=== PATIENT | female | born 1980 | race Caucasian/White ===

== ENCOUNTER 2020-03-10 12:58 | Emergency (ER) | payer BC, OTHER ==
[2020-03-10] MEDS ORDERED: Sodium Chloride 0.9% 2.5 ML Syringe FLUSH PRN (13:25)
[2020-03-10] MEDS ORDERED: Sodium Chloride 0.9% 10 ML Syringe FLUSH PRN (13:25)
[2020-03-10 14:14] LABS: BLOOD UREA NITROGEN,BUN 6 mg/dL (7.0-18.0); CARBON DIOXIDE,CO2 24.4 mmol/L (21.0-32.0); CHLORIDE,CL 101 mmol/L (98-107); GLUCOSE RANDOM 86 mg/dL (74-106); POTASSIUM,K 3.4 mmol/L (3.5-5.1); SODIUM,NA 137 mmol/L (136-145)
[2020-03-10] MEDS ORDERED: Ondansetron 4 MG/2 ML SDV IVPUSH ONE ×2 (14:17→18:27)
[2020-03-10] MEDS ORDERED: Lactated Ringers 1,000 ML IV ONE ×2 (14:17→14:19)
--- NOTE | 2020-03-10 16:01 | CR ---
Indication: Pleuritic bilateral chest pain. . Technique: PA and lateral views the chest. Comparison: None Findings: The heart is normal in size. Patchy ground-glass opacities are identified bilaterally. COVID cannot be completely excluded. No pleural effusion or pneumothorax is identified. Impression: Patchy bilateral opacities, COVID cannot be completely excluded Dictated by Lila Cotton MD @ Mar 10 2020 4:00PM Signed by Dr. Lila Cotton @ Mar 10 2020 4:00PM
--- NOTE | 2020-03-10 16:58 | US ---
INDICATION: Pleuritic chest pain TECHNIQUE: A compression venous ultrasound exam was performed of both lower extremities using dietrich scale imaging, color Doppler and spectral Doppler analysis. FINDINGS: Sonographic imaging of the lower extremities demonstrates normal compressibility and color Doppler venous blood flow within the common femoral, deep femoral, and proximal greater saphenous veins. Within the thighs the femoral veins are patent and compressible. At a lower level the popliteal and posterior tibial veins also show normal compressibility and color Doppler venous blood flow. IMPRESSION: No evidence of deep vein thrombosis within either the left or right lower extremity. Dictated by Muriel Kwan MD @ Mar 10 2020 4:54PM Signed by Dr. Muriel Kwan @ Mar 10 2020 4:55PM
[2020-03-10] MEDS ORDERED: Iopamidol 755 MG/ML 500 ML Multipack Bottle IVPUSH ONE (17:28)
--- NOTE | 2020-03-10 17:49 | CT ---
Indication: Pleuritic chest pain COVID positive 22 weeks Technique: Contrast-enhanced CT PE Comparison: No comparison studies are available. Findings: Normal caliber thoracic aorta. Suboptimal enhancement of the pulmonary arteries. No pulmonary emboli visualized. Heart is normal size there is no pericardial effusion. Diffuse bilateral central and peripheral patchy ground-glass and parenchymal opacities. No significant effusion or pneumothorax. Fatty liver. No suspicious bony lesions. Impression: 1. No pulmonary emboli. 2. Diffuse central and peripheral patchy ground-glass and parenchymal opacities consistent with known COVID infection. 3. Fatty liver. Please note that all CT scans at this facility use dose modulation, iterative reconstruction, and/or weight-based dosing when appropriate to reduce radiation dose to as low as reasonably achievable. Dictated by Muriel Kwan MD @ Mar 10 2020 5:43PM Signed by Dr. Muriel Kwan @ Mar 10 2020 5:47PM
--- NOTE | 2020-03-10 17:50 | EDM.PDOC ---
ED HPI GENERAL MEDICAL PROBLEM - General Chief Complaint: Gastrointestinal Problem Stated Complaint: DEHYDRATION/VOMITING Time Seen by Provider: 03/10/20 13:01 Source of Information: Reports: Patient, Old Records History Limitations: Reports: No Limitations - History of Present Illness INITIAL COMMENTS - FREE TEXT/NARRATIVE: This is a very pleasant 39-year-old female with no pertinent past medical history, approximately 22 weeks presenting with nausea, vomiting, cough, and pleuritic chest pain. She reports that she has been dealing with a nonproductive cough for about 5 days duration. She was seen in outpatient clinic and had a [facility] COVID test sent off several days ago that has not resulted yet. She also complains of a few days of pleuritic chest pain which is bilateral in nature. She is not having any substernal chest pain or any chest pain at rest. She complains of multiple episodes of nonbloody emesis over the past week or so. She denies any abdominal pain, hematemesis, diarrhea, bloody stools, vaginal bleeding, back pain, leakage of fluids, lower extremity pain or swelling, history of venous thromboembolism, recent surgery or immobilization or long travel, history of active cancer. She is under the regular care of an inspection manager and is already had an ultrasound performed which reportedly showed the fetus in good position. There are no known issues with this to the patient's knowledge. She has no other complaints. ROS: A 10-point review of systems was negative, except as noted in the HPI (or in the ROS section of this note). Past medical history: Reviewed, no additional pertinent history. Surgical history: Reviewed in system, no additional pertinent history. Social history: Reviewed in system, no additional pertinent history. Family history: Reviewed in system, no additional pertinent history. PHYSICAL EXAM Vital signs reviewed. Nursing notes reviewed. Constitutional: Awake, alert, non-distressed. Head: Normocephalic, atraumatic. Eyes: EOMI, conjunctiva normal, no discharge, no scleral icterus. Ears, Nose, Throat: External ears and nose normal, moist oral mucosa. Cardiovascular: Tachycardic, 2+ radial pulse, capillary refill less than 2 seconds. Pulmonary: normal work of breathing, no accessory muscle use. Abdomen/GI: Gravid, soft, nontender, nondistended, no guarding or rigidity, no masses. Musculoskeletal: No deformities. Integumentary: Appropriate color for ethnicity, warm, dry, no pallor or georges dice, no rash. Neurologic: Alert, answering questions appropriately, normal speech, no facial droop, moving all extremities well. Psychiatric: Appropriate mood and affect, normal thought process. lungs,ribs Pain Score (Numeric/FACES): 5 - Related Data Allergies Allergy/AdvReac Type Severity Reaction Status Date / Time diphenhydramine HCl Allergy Unknown Rash Verified 03/10/20 13:12 [From Benadryl] Penicillins Allergy Unknown Rash Verified 03/10/20 13:12 amoxicillin Allergy Rash Verified 03/10/20 13:12 Home Meds: Home Meds Vit No.78/Iron/Fa [Prenatabs FA] 1 tab PO DAILY 01/22/14 [History] Acetaminophen [Tylenol] 325 mg PO Q4HR PRN 09/06/15 [History] Calcium Carbonate [Tums] 500 mg PO TID 09/06/15 [History] ondansetron HCL [Zofran] 1 tab PO DAILY 09/06/15 [History] Past Medical History STATISTICIAN History: Reports: , Spontaneous , Other (See Below) Other STATISTICIAN History: D&C - Infectious Disease History Infectious Disease History: Reports: Chicken Pox - Past Surgical History Female Surgical History: Reports: D&C Social & Family History - Family History HEENT: Reports: Glaucoma Cardiac: Reports: [place] Musculoskeletal: Reports: Osteoporosis Neurological: Reports: Parkinson's Dermatologic: Reports: Eczema Oncologic: Reports: Leukemia - Tobacco Use Smoking Status *Q: Never Smoker - Recreational Drug Use Recreational Drug Use: No ED ROS GENERAL - Review of Systems Review Of Systems: See Below ED EXAM, GI/ABD - Physical Exam Exam: See Below EKG INTERPRETATION EKG Interpretation Comments: 12-Lead ECG Interpretation Acquired: 1:32 PM Rhythm: Sinus tachycardia Rate: 118 bpm Keeling: Normal Intervals: Normal Ectopy: None RV Strain: No obvious RV strain pattern. ST Segments/T-Waves: Subtle, nondiagnostic ST segment depression less than 1 mm in leads I and aVL Interpretation: No STEMI, S1Q3T3 pattern noted without anterior precordial T wave inversions or acute right heart strain, no right bundle branch pattern appreciated. Course - Vital Signs Text/Narrative:: 39-year-old female presenting with several days of nonbloody emesis, nausea, and bilateral pleuritic chest pain along with a cough. Differential diagnoses included but were not limited to viral upper restaurant infection, COVID-19 infection, pulmonary embolism, acute coronary syndrome, gastroenteritis, volume depletion, electrolyte disturbance, anemia, arrhythmia, rib fracture, pleurisy, pleural effusion, pericarditis, and many others. On arrival the patient was tachycardic but she appeared nontoxic and did not look systemically ill. IV access established and labs were sent. Given 2 L of crystalloid with improvement of heart rate. Twelve-lead EKG was obtained which was initially concerning for an S1Q3T3 pattern although there was no sign of acute right heart strain, there is no right bundle branch block pattern and there are no precordial T wave inversion.s Did note sinus tachycardia at 118 bpm. FHTs 157/min per Jorge L Anne RN. Obtained a 2 view chest x-ray series which was concerning for diffuse peripheral infiltrates, suspected to be of an infectious nature. While the patient was in the emergency department, the [facility] called her cell phone to inform her that her COVID test from several days ago was positive. Labs returned showing normal cell lines. Lactate is normal. Metabolic panel shows very mild hypokalemia. Normal renal function. AST, ALT, alkaline maynor sphatase minimally elevated. Troponin negative. Lipase within normal limits. heart tones were measured by the nurse and were within normal limits. Patient is not having any abdominal pain, back pain, or vaginal bleeding. Obtained of bilateral DVT ultrasound study, which was negative. Given pleuritic chest pain with tachycardia in the context of known COVID-19 infection in , there was concern for PE. We pursued a CT pulmonary angiogram, which showed no evidence of pulmonary embolism but again demonstrated diffuse bilateral infiltrates concerning for infection. Patient was given some Zofran and felt better, no longer actively vomiting in the ED. Heart rate somewhat improved after IV fluids, still tachycardic but she is not feeling lightheaded or short of breath on reevaluation. There is no evidence of serious cardiopulmonary pathology at this point such as a pneumothorax, pleural effusion, etc. There is no evidence of myocardial ischemia by biomarker testing her twelve-lead EKG. Patient was tachycardic at discharge but her heart rate had improved after IV fluids. I have low suspicion for a life-threatening process behind the tachycardia. She is not anemic. She has no abdominal pain so I have low suspicion for any intra-abdominal surgical pathology. Her electrolytes are normal (except very mild hypokalemia). There is no evidence of a PE by her work-up and no evidence of ectopy or an arrhythmia on her telemetry tracing. She is not feeling lightheaded and there is no report of any vaginal or GI bleeding. She is feeling better and I am comfortable with her going home this evening. I believe her presentation is consistent with known COVID-19 infection. We will prescribe some Zofran and I did recommend [id number] Tylenol and cough drops along with plenty of fluids and rest. I did encourage her to follow-up with her STATISTICIAN clinic and advised him of the positive COVID-19 diagnosis to see if they have any new recommendations. We did discuss return precautions including worsening chest pain or shortness of breath or any other new or concerning symptoms. She voiced understanding and had no other questions. She was discharged in good condition. Last Recorded V/S: Last Vital Signs Temp 37.3 C 03/10/20 13:08 Pulse 119 H 03/10/20 19:27 Resp 16 03/10/20 19:27 BP 131/77 03/10/20 19:27 Pulse Ox 94 L 03/10/20 19:27 - Orders/Labs/Meds Orders: Active Orders 24 hr Category Date Time Status Saline Lock Insert [OM.PC] Stat Oth 03/10/20 13:25 Ordered Labs: Laboratory Tests 03/10/20 03/10/20 03/10/20 Range/Units 13:30 13:30 13:30 WBC 8.60 (4.0-11.0) K/uL RBC 4.05 L (4.30-5.90) M/uL Hgb 12.3 (12.0-16.0) g/dL Hct 37.8 (36.0-46.0) % MCV 93.3 (80.0-98.0) fL MCH 30.4 (27.0-32.0) pg MCHC 32.5 (31.0-37.0) g/dL RDW Std Deviation 47.9 (28.0-62.0) fl RDW Coeff of Mitchell 14 (11.0-15.0) % Plt Count 284 (150-400) K/uL MPV 9.80 (7.40-12.00) fL Add Manual Diff YES Neutrophils % (Manual) 86 H (48.0-80.0) % Band Neutrophils % 4 % Lymphocytes % (Manual) 9 L (16.0-40.0) % Monocytes % (Manual) 1 (0.0-15.0) % Nucleated RBC % 0.0 /100WBC Absolute Seg Neuts 7.4 H (1.4-5.7) Band Neutrophils # 0.3 Lymphocytes # (Manual) 0.8 (0.6-2.4) Monocytes # (Manual) 0.1 (0.0-0.8) Nucleated RBCs # 0 K/uL Lactate 1.0 (0.20-2.00) mmol/L Sodium 137 (136-145) mmol/L Potassium 3.4 L (3.5-5.1) mmol/L Chloride 101 (98-107) mmol/L Carbon Dioxide 24.4 (21.0-32.0) mmol/L BUN 6 L (7.0-18.0) mg/dL Creatinine 0.6 (0.6-1.0) mg/dL Est Cr Clr Drug Dosing 110.86 mL/min Estimated GFR (MDRD) > 60.0 ml/min Glucose 86 (74-106) mg/dL Calcium 8.5 (8.5-10.1) mg/dL Total Bilirubin 0.4 (0.2-1.0) mg/dL AST 48 H (15-37) IU/L ALT 73 H (14-63) IU/L Alkaline Phosphatase 129 H (46-116) U/L Troponin I < 0.050 (0.000-0.056) ng/mL Total Protein 7.1 (6.4-8.2) g/dL Albumin 2.9 L (3.4-5.0) g/dL Globulin 4.2 H (2.6-4.0) g/dL Albumin/Globulin Ratio 0.7 L (0.9-1.6) Lipase (73-393) U/L 03/10/20 Range/Units 13:30 WBC (4.0-11.0) K/uL RBC (4.30-5.90) M/uL Hgb (12.0-16.0) g/dL Hct (36.0-46.0) % MCV (80.0-98.0) fL MCH (27.0-32.0) pg MCHC (31.0-37.0) g/dL RDW Std Deviation (28.0-62.0) fl RDW Coeff of Mitchell (11.0-15.0) % Plt Count (150-400) K/uL MPV (7.40-12.00) fL Add Manual Diff Neutrophils % (Manual) (48.0-80.0) % Band Neutrophils % % Lymphocytes % (Manual) (16.0-40.0) % Monocytes % (Manual) (0.0-15.0) % Nucleated RBC % /100WBC Absolute Seg Neuts (1.4-5.7) Band Neutrophils # Lymphocytes # (Manual) (0.6-2.4) Monocytes # (Manual) (0.0-0.8) Nucleated RBCs # K/uL Lactate (0.20-2.00) mmol/L Sodium (136-145) mmol/L Potassium (3.5-5.1) mmol/L Chloride (98-107) mmol/L Carbon Dioxide (21.0-32.0) mmol/L BUN (7.0-18.0) mg/dL Creatinine (0.6-1.0) mg/dL Est Cr Clr Drug Dosing mL/min Estimated GFR (MDRD) ml/min Glucose (74-106) mg/dL Calcium (8.5-10.1) mg/dL Total Bilirubin (0.2-1.0) mg/dL AST (15-37) IU/L ALT (14-63) IU/L Alkaline Phosphatase (46-116) U/L Troponin I (0.000-0.056) ng/mL Total Protein (6.4-8.2) g/dL Albumin (3.4-5.0) g/dL Globulin (2.6-4.0) g/dL Albumin/Globulin Ratio (0.9-1.6) Lipase 98 (73-393) U/L Meds: Medications Discontinued Medications Generic Name Dose Route Start Last Admin Trade Name Freq PRN Reason Stop Dose Admin Lactated Ringer's 1,000 mls @ 999 mls/hr 03/10/20 14:17 03/10/20 14:51 Ringers, Lactated IV 03/10/20 15:17 999 mls/hr .BOLUS ONE Administration Lactated Ringer's 1,000 mls @ 999 mls/hr 03/10/20 14:19 03/10/20 14:51 Ringers, Lactated IV 03/10/20 15:19 999 mls/hr .BOLUS ONE Administration Iopamidol 100 ml 03/10/20 17:28 03/10/20 17:29 Isovue Multipack-370 (76%) IVPUSH 03/10/20 17:29 100 ml ONETIME ONE Administration Ondansetron HCl 4 mg 03/10/20 14:17 03/10/20 14:53 Zofran IVPUSH 03/10/20 14:18 4 mg ONETIME ONE Administration Ondansetron HCl 4 mg 03/10/20 18:27 03/10/20 19:27 Zofran IVPUSH 03/10/20 18:28 4 mg ONETIME ONE Administration Sodium Chloride 10 ml 03/10/20 13:25 03/10/20 13:52 Saline Flush FLUSH 10 ml ASDIRECTED PRN Administration Keep Vein Open Sodium Chloride 2.5 ml 03/10/20 13:25 03/10/20 13:52 Saline Flush FLUSH 2.5 ml ASDIRECTED PRN Administration Keep Vein Open Departure - Departure Time of Disposition: 19:26 Disposition: Home, Self-Care 01 Condition: Good Clinical Impression: Nausea and vomiting during , COVID-19 virus infection - Discharge Information Instructions: COVID-19 Frequently Asked Questions, Nausea and Vomiting, Adult Referrals: Leah Barger MD [Primary Care Provider] - 1 Week (For follow-up of symptoms.) Forms: ED Department Discharge Additional Instructions: You were seen in the emergency department for nausea vomiting and painful breathing. Your ultrasound and CT scans did not show evidence of a blood clot in your legs or in your lungs. Your blood work looks reassuring at this point. Your diagnosed with COVID-19 and I believe that your painful breathing and your symptoms are primarily due to this. We will prescribe some Zofran for nausea and vomiting. You can take Tylenol [id number] for any pain. You can take arny-byj-wgtsypn cough medication such as cough drops. I recommend that you let your STATISTICIAN clinic know that you are diagnosed with COVID-19 today. Warning signs to come back to the ER include shortness of breath, worsening chest pain, severe weakness or lightheadedness, or any other new or concerning symptoms. Please return the emergency department immediately if your symptoms worsen or if you feel worse. Thank you for choosing the [facility] emergency department in [place] for your medical needs today. It was a pleasure caring for you. The following information is given to patients seen in the emergency department who are being discharged. This information is to outline your options for follow-up care. We provide all patients seen in our emergency department with a follow-up referral. The need for follow-up, as well as the timing and circumstances, are variable depending upon the specifics of your emergency department visit. If you don't have a primary care physician on staff, we will provide you with a referral. We always advise you to contact your personal physician following an emergency department visit to inform them of the circumstance of the visit and for follow-up with them and/or the need for any referrals to a consulting specialist. The emergency department will also refer you to a specialist when appropriate. This referral assures that you have the opportunity for follow-up care with a specialist. All of these measure are taken in an effort to provide you with optimal care, which includes your follow-up. Under all circumstances we always encourage you to contact your private physician who remains a resource for coordinating your care. When calling for follow-up care, please make the office aware that this follow-up is from your recent emergency room visit. If for any reason you are refused follow-up, please contact the [facility] Emergency Department at and asked to speak to the emergency department charge nurse. If you do not have a primary care physician that is caring for you, you can contact these clinics below to set up an appointment to establish care: Zenobia Acevedo [facility] - Primary Care [address] [place] [id number] [facility] [address] [place] [id number] Sepsis Event Note (ED) - Evaluation Sepsis Screening Result: No Definite Risk - Focused Exam Vital Signs: Vital Signs Pulse Resp BP Pulse Ox 03/10/20 19:27 119 H 16 131/77 94 L - My Orders Last 24 Hours: My Active Orders 03/10/20 13:25 Saline Lock Insert [OM.PC] Stat - Assessment/Plan Last 24 Hours: My Active Orders 03/10/20 13:25 Saline Lock Insert [OM.PC] Stat
[2020-03-10 19:28] VITALS: BP 131/77; PULSE 119
== END 2020-03-10 19:43 | disposition home or self-care (01) ==
LOC: MW.ED 12:58
DX: O98.512 Other viral diseases complicating pregnancy, second trimester (principal); U07.1 COVID-19; O21.9 Vomiting of pregnancy, unspecified; Z88.6 Allergy status to analgesic agent; Z88.1 Allergy status to other antibiotic agents; Z88.0 Allergy status to penicillin; Z3A.22 22 weeks gestation of pregnancy
CPT/HCPCS: 71046; 71275; 80053; 83605; 83690; 84484; 85025; 93005; 93970; 96374; 96376; 99285; J2405; J7120; Q9967

== ENCOUNTER 2020-06-28 17:15 | Inpatient (IN) | payer BC ==
[2020-06-28] MEDS ORDERED: Sodium Chloride 0.9% 10 ML Syringe FLUSH PRN (17:29)
[2020-06-28] MEDS ORDERED: Lidocaine 1% 50 ML MDV INJECT PRN (17:29)
[2020-06-28] MEDS ORDERED: Misoprostol 200 MCG Tab PO PRN (17:29)
[2020-06-28] MEDS ORDERED: Sodium Chloride 0.9% 10 ML SDV IV PRN (17:29)
[2020-06-28] MEDS ORDERED: Carboprost Tromethamine 250 MCG/1 ML Amp IM PRN (17:29)
[2020-06-28] MEDS ORDERED: Sodium Chloride 0.9% 2.5 ML Syringe FLUSH PRN (17:29)
[2020-06-28] MEDS ORDERED: Terbutaline 1 MG/ML SDV SUBCUT PRN (17:29)
[2020-06-28] MEDS ORDERED: Tranexamic Acid 1,000 MG in Sodium Chloride 0.9% 100 ML IV PRN (17:29)
[2020-06-28] MEDS ORDERED: Butorphanol 1 MG/ML SDV IVPUSH PRN (17:29)
[2020-06-28] MEDS ORDERED: Ondansetron 4 MG/2 ML SDV IVPUSH PRN (17:29)
[2020-06-28] MEDS ORDERED: Methylergonovine 0.2 MG/1 ML Amp IM PRN (17:29)
[2020-06-28] MEDS ORDERED: Water For Irrigation,Sterile 1,000 ML Container IRR PRN (17:29)
[2020-06-28] MEDS ORDERED: Nalbuphine 10 MG/1 ML Vial IVPUSH PRN (17:29)
[2020-06-28] MEDS ORDERED: Oxytocin/0.9 % Sodium Chloride 30 UNIT/500 ML BAG IV SCH ×2 (17:30)
[2020-06-28] MEDS ORDERED: Misoprostol 25 MCG (1/4 of 100 MCG) Tab VAG PRN (18:29)
[2020-06-28 18:57] LABS: BLOOD UREA NITROGEN,BUN 10 mg/dL (7.0-18.0); CARBON DIOXIDE,CO2 21.2 mmol/L (21.0-32.0); CHLORIDE,CL 106 mmol/L (98-107); GLUCOSE RANDOM 73 mg/dL (74-106); SODIUM,NA 139 mmol/L (136-145)
[2020-06-28] MEDS: Lactated Ringers 1,000 ML IV SCH ×3 (19:16→23:14)
[2020-06-28] MEDS ORDERED: fentaNYL 100 MCG/2 ML SDV ONE (22:11)
[2020-06-28] MEDS ORDERED: Ropivacaine HCl/PF 100 ML ONE (22:11)
--- NOTE | 2020-06-28 22:32 | PCM.PREANE ---
Preanesthetic Assessment - Anesthesia/Transfusion/Family Hx Anesthesia History: Prior Anesthesia Without Reaction Other Type of Anesthesia Reaction Comment: denies any prior anesthesia, reports no known family hx: of problems w/anes Family History of Anesthesia Reaction: No Transfusion History: No Prior Transfusion(s) - Physical Assessment NPO Status Date: 06/28/20 NPO Status Time: 18:00 Height: 1.63 m Weight: 87.543 kg ASA Class: 2 - Lab Values: Laboratory Last Values WBC 8.87 K/uL (4.0-11.0) 06/28/20 18:08 RBC 4.02 M/uL (4.30-5.90) L 06/28/20 18:08 Hgb 12.3 g/dL (12.0-16.0) 06/28/20 18:08 Hct 37.7 % (36.0-46.0) 06/28/20 18:08 MCV 93.8 fL (80.0-98.0) 06/28/20 18:08 MCH 30.6 pg (27.0-32.0) 06/28/20 18:08 MCHC 32.6 g/dL (31.0-37.0) 06/28/20 18:08 RDW Std Deviation 51.9 fl (28.0-62.0) 06/28/20 18:08 RDW Coeff of Mitchell 15 % (11.0-15.0) 06/28/20 18:08 Plt Count 248 K/uL (150-400) 06/28/20 18:08 MPV 11.00 fL (7.40-12.00) 06/28/20 18:08 Nucleated RBC % 0.0 /100WBC 06/28/20 18:08 Nucleated RBCs # 0 K/uL 06/28/20 18:08 Sodium 139 mmol/L (136-145) 06/28/20 18:08 Potassium 4.0 mmol/L (3.5-5.1) 06/28/20 18:08 Chloride 106 mmol/L (98-107) 06/28/20 18:08 Carbon Dioxide 21.2 mmol/L (21.0-32.0) 06/28/20 18:08 BUN 10 mg/dL (7.0-18.0) 06/28/20 18:08 Creatinine 0.5 mg/dL (0.6-1.0) L 06/28/20 18:08 Est Cr Clr Drug Dosing 133.03 mL/min 06/28/20 18:08 Estimated GFR (MDRD) > 60.0 ml/min 06/28/20 18:08 Glucose 73 mg/dL (74-106) L 06/28/20 18:08 Uric Acid 3.9 mg/dL (2.6-7.2) 06/28/20 18:08 Calcium 9.8 mg/dL (8.5-10.1) 06/28/20 18:08 Total Bilirubin 0.2 mg/dL (0.2-1.0) 06/28/20 18:08 AST 18 IU/L (15-37) 06/28/20 18:08 ALT 26 IU/L (14-63) 06/28/20 18:08 Alkaline Phosphatase 138 U/L (46-116) H 06/28/20 18:08 Total Protein 6.4 g/dL (6.4-8.2) 06/28/20 18:08 Albumin 2.9 g/dL (3.4-5.0) L 06/28/20 18:08 Globulin 3.5 g/dL (2.6-4.0) 06/28/20 18:08 Albumin/Globulin Ratio 0.8 (0.9-1.6) L 06/28/20 18:08 SARS-CoV-2 RNA (CIERRA) POSITIVE (NEGATIVE) H 06/28/20 17:58 Blood Type A POSITIVE 06/28/20 18:08 Antibody Screen NEGATIVE 06/28/20 18:08 - Allergies Allergies/Adverse Reactions: Allergies Allergy/AdvReac Type Severity Reaction Status Date / Time diphenhydramine HCl Allergy Unknown Rash Verified 06/28/20 17:25 [From Benadryl] Penicillins Allergy Unknown Rash Verified 06/24/20 15:22 amoxicillin Allergy Rash Verified 06/28/20 17:25 - Acknowledgements Anesthesia Type Planned: Epidural Pt an Appropriate Candidate for the Planned Anesthesia: Yes Alternatives and Risks of Anesthesia Discussed w Pt/Guardian: Yes Pt/Guardian Understands and Agrees with Anesthesia Plan: Yes PreAnesthesia Questionnaire Cardiovascular History: Reports: Hypertension, Other (See Below) Other Cardiovascular History: gestational hypertension Gastrointestinal History: Reports: Other (See Below) Other Gastrointestinal History: heartburn with ENVIRONMENTAL HEALTH SPECIALIST History: Reports: , Spontaneous , Other (See Below) Other OB/BYN History: D&C Neurological History: Reports: Migraines, Other (See Below) Other Neuro History: migraines during Endocrine/Metabolic History: Reports: Diabetes, Gestational - Infectious Disease History Infectious Disease History: Reports: Chicken Pox - Past Surgical History Cardiovascular Surgical History: Reports: None Respiratory Surgical History: Reports: None GI Surgical History: Reports: None Female Surgical History: Reports: D&C Endocrine Surgical History: Reports: None Neurological Surgical History: Reports: None - SUBSTANCE USE Tobacco Use Status *Q: Never Tobacco User Second Hand Smoke Exposure: No Recreational Drug Use History: No - HOME MEDS Home Medications: Home Meds Vit No.78/Iron/Fa [Prenatabs FA] 1 tab PO DAILY 01/22/14 [History] Acetaminophen [Tylenol] 325 mg PO Q4HR PRN 09/06/15 [History] Calcium Carbonate [Tums] 500 mg PO TID 09/06/15 [History] ondansetron HCL [Zofran] 1 tab PO BEDTIME 09/06/15 [History] Magnesium 1 tab PO BEDTIME 06/24/20 [History] - CURRENT (IN HOUSE) MEDS Current Meds: Current Medications Butorphanol Tartrate (Stadol) 1 mg IVPUSH Q1H PRN PRN Reason: Pain Carboprost Tromethamine (Hemabate Ds) 250 mcg IM ASDIRECTED PRN PRN Reason: Post Hemorrhage Oxytocin/Sodium Chloride (Oxytocin 30 Unit/500 Ml-Ns) 30 unit in 500 mls @ 999 mls/hr IV TITRATE SHANDRA Tranexamic Acid 1,000 mg/ (Sodium Chloride) 110 mls @ 660 mls/hr IV ONETIME PRN PRN Reason: Bleeding Oxytocin/Sodium Chloride (Oxytocin 30 Unit/500 Ml-Ns) 30 unit in 500 mls @ 2 mls/hr IV TITRATE SHANDRA; Protocol Lactated Ringer's (Ringers, Lactated) 1,000 mls @ 150 mls/hr IV ASDIRECTED SHANDRA Last Admin: 06/28/20 22:06 Dose: 999 mls/hr Documented by: Lidocaine HCl (Xylocaine 1%) 50 ml INJECT ONETIME PRN PRN Reason: Laceration repair Methylergonovine Maleate (Methergine) 0.2 mg IM ASDIRECTED PRN PRN Reason: Post Hemorrhage Misoprostol (Cytotec) 200 mcg PO ONETIME PRN PRN Reason: Post Hemorrhage Misoprostol (Cytotec) 25 mcg VAG ONETIME PRN PRN Reason: Cervical Ripening Last Admin: 06/28/20 19:08 Dose: 25 mcg Documented by: Misoprostol (Cytotec) 25 mcg VAG Q4H PRN PRN Reason: Cervical Ripening Last Admin: 06/28/20 19:56 Dose: 25 mcg Documented by: Nalbuphine HCl (Nubain) 10 mg IVPUSH Q1H PRN PRN Reason: Pain (severe 7-10) Ondansetron HCl (Zofran) 4 mg IVPUSH Q6H PRN PRN Reason: Nausea/Vomiting Sodium Chloride (Saline Flush) 10 ml FLUSH ASDIRECTED PRN PRN Reason: Keep Vein Open Sodium Chloride (Saline Flush) 2.5 ml FLUSH ASDIRECTED PRN PRN Reason: Keep Vein Open Sodium Chloride (Normal Saline) 10 ml IV ASDIRECTED PRN PRN Reason: IV Use Sterile Water (Sterile Water For Irrigation) 1,000 ml IRR ASDIRECTED PRN PRN Reason: delivery Terbutaline Sulfate (Brethine) 0.25 mg SUBCUT ASDIRECTED PRN PRN Reason: Tacysystole Discontinued Medications Fentanyl (Sublimaze) Confirm Administered Dose 100 mcg .ROUTE .STK-MED ONE Stop: 06/28/20 22:12 Ropivacaine (Naropin 0.2%) Confirm Administered Dose 100 mls @ as directed .ROUTE .STK-MED ONE Stop: 06/28/20 22:12
--- NOTE | 2020-06-28 22:35 | PCM.PRNOTE ---
- Free Text/Narrative Note: Anes Note Paitent requests epdiural for L&D. Sitting position, level L3-L4 midline approach. Sterile technique. Chloraprep scrub to lumbar area. Sterile fenestrated drape applied. Epidural space eachieved single attempt using CHRISTY technique. CHRISTY at 3 cm. Cath threaded 5 cm with ease. Cath secured at skin using sterile clear adhesive dressing. Test 2223 3 cc 1.5A% lido with epi negative. 2235 Load 10 cc 0.2% ropiviciane with 1 mcg cc fentanyl in slow divided doses. 2240 Pump started with 90 cc same solution. Rate is 8 cc hr with 6 cc q 20 min prn bolus. Jeison well. Time with patient [id number]. Tommie Lemos BAR ATTENDANT
[2020-06-29] MEDS ORDERED: Misoprostol 25 MCG (1/4 of 100 MCG) Tab VAG PRN (00:29)
[2020-06-29] MEDS ORDERED: Bisacodyl 10 MG Supp RECTAL PRN (01:01)
[2020-06-29] MEDS ORDERED: Witch Hazel Medicated Pads 40/Jar TOP PRN (01:01)
[2020-06-29] MEDS ORDERED: Measles, Mumps & Rubella Vaccine 0.5 ML SDV SUBCUT ONE (01:01)
[2020-06-29] MEDS ORDERED: Acetaminophen 500 MG Tab PO PRN (01:01)
[2020-06-29] MEDS ORDERED: Ibuprofen 400 MG Tab PO PRN (01:01)
[2020-06-29] MEDS ORDERED: Benzocaine/Menthol 20%-0.5% Spray 78 GM Cannister TOP PRN (01:01)
[2020-06-29] MEDS ORDERED: oxyCODONE 5 MG Tab PO PRN (01:01)
[2020-06-29] MEDS ORDERED: Lanolin 100% Cream 7 GM Tube TOP PRN (01:01)
[2020-06-29] MEDS: Ibuprofen 800 MG Tab PO PRN ×3 (03:31→21:33)
[2020-06-29] MEDS: Docusate Sodium 100 MG Cap PO PRN ×2 (03:32→21:32)
[2020-06-29] MEDS: Acetaminophen 500 MG Tab PO PRN ×3 (03:32→18:34)
--- NOTE | 2020-06-29 03:42 | OR ---
SURGEON: Ye Montgomery MD DATE OF PROCEDURE: 06/29/2020 INDICATION FOR PROCEDURE: A 39-year-old G5, P 3-0-1-3 at 38 weeks and 2 days, admitted for induction of labor due to preeclampsia without severe features. The patient has been having increasingly elevated blood pressure for the past 3 weeks, was seen in clinic today with a blood pressure of 158/90. She denies other signs of preeclampsia. She had preeclampsia labs which were normal, except for an elevated protein/creatinine ratio of 0.5 earlier in the week. The was also complicated by gestational diabetes that has been well controlled with diet. She had COVID-19, test positive on March 07, 2020, had mild symptoms. She had been receiving weekly testing with NST and BPPs, which has been reassuring. She is GBS negative. After admission, the patient had rapid COVID-19 test and which was again positive. She denies any recent contacts and does not have any other symptoms. Droplet precaution was taken. The patient received 2 doses of Cytotec and began odalys regularly. She progressed from 1 cm to 4 cm dilated. She received and epidural with good pain control. The baby was category 1 tracing during most of the labor course. She has intermittent variable decelerations, that recovered with repositioning. She quickly progressed to 9, 80, and -2 station with bulging membranes. AROM was performed with blood-tinged fluid. The baby then had descent in the pelvis, and she was fully dilated, with urged to push. PREOPERATIVE DIAGNOSES: 1. Jaramillo intrauterine at 38 weeks and 2 days. 2. Preeclampsia without severe features. 3. Gestational Diabetes Mellitus A1. 4. COVID-19 positive. POSTOPERATIVE DIAGNOSES: 1. Jaramillo intrauterine at 38 weeks and 2 days. 2. Preeclampsia without severe features. 3. Gestational Diabetes Mellitus A1. 4. COVID-19 positive. PROCEDURE PERFORMED: Normal spontaneous vaginal delivery. ANESTHESIA: Epidural. FINDINGS: Viable male infant. score of 8 and 9. weight of 3420 g. Baby had a nuchal cord x2, a body cord x1 and a true knot in the cord. ESTIMATED BLOOD LOSS: 200 mL. DESCRIPTION OF PROCEDURE: The patient pushed with contractions for approximately half an hour with good descent. head was delivered in occiput anterior position, restituted ROT. Double nuchal cord was noted and reduced at the perineum. Anterior shoulder delivered easily followed by the posterior shoulder and remaining body. A body cord was noted and reduced after delivery. A true knot was noted in the umbilical cord. The baby was placed on maternal chest and evaluated by awaiting nursery staff. The baby was pink, crying vigorously, and moving all extremities after delivery. The umbilical cord was clamped and cut after 60 seconds and no longer pulsating. The umbilical cord gases were obtained. The placenta was removed with gentle traction on the umbilical cord and fundal massage. It was examined and found to be intact with 3-vessel cord. Perineum was examined, and no lacerations were noted. The fundus was firm and at the umbilicus, and the bleeding was light. The patient tolerated the procedure well and care instructions were reviewed. CHEYANNE WOODWARD /[id number] MTDD
[2020-06-29 06:45] LABS: BLOOD UREA NITROGEN,BUN 10 mg/dL (7.0-18.0); CARBON DIOXIDE,CO2 23.4 mmol/L (21.0-32.0); CHLORIDE,CL 107 mmol/L (98-107); GLUCOSE RANDOM 91 mg/dL (74-106); POTASSIUM,K 3.9 mmol/L (3.5-5.1); SODIUM,NA 141 mmol/L (136-145)
[2020-06-30] MEDS: Acetaminophen 500 MG Tab PO PRN (05:34)
--- NOTE | 2020-06-30 07:31 | PCM48HPAN ---
Post Anesthesia Note - EVALUATION WITHIN 48HRS OF ANESTHETIC Vital Signs in Normal Range: Yes Patient Participated in Evaluation: Yes Respiratory Function Stable: Yes Airway Patent: Yes Cardiovascular Function Stable: Yes Hydration Status Stable: Yes Pain Control Satisfactory: Yes Nausea and Vomiting Control Satisfactory: Yes Mental Status Recovered: Yes Vital Signs: Last Vital Signs Temp 36.8 C 06/29/20 18:55 Pulse 71 06/29/20 18:55 Resp 18 06/29/20 18:55 BP 130/70 06/29/20 18:55 Pulse Ox 97 06/29/20 18:55
[2020-06-30] MEDS: Ibuprofen 800 MG Tab PO PRN (08:55)
[2020-06-30 09:11] VITALS: BP 138/85; PULSE 79
--- NOTE | 2020-06-30 11:08 | PCM.PNPP ---
- General Info Date of Service: 06/30/20 Functional Status: Reports: Pain Controlled, Tolerating Diet, Ambulating, Urinating - Review of Systems General: Reports: No Symptoms HEENT: Reports: No Symptoms Pulmonary: Reports: No Symptoms Cardiovascular: Reports: No Symptoms Gastrointestinal: Reports: No Symptoms Genitourinary: Reports: No Symptoms Musculoskeletal: Reports: No Symptoms Skin: Reports: No Symptoms Neurological: Reports: No Symptoms Psychiatric: Reports: No Symptoms - Patient Data Vital Signs - Most Recent: Last Vital Signs Temp 37.2 C 06/30/20 08:50 Pulse 79 06/30/20 08:50 Resp 20 06/30/20 08:50 BP 138/85 06/30/20 08:50 Pulse Ox 99 06/30/20 08:50 Weight - Most Recent: 193 lb Med Orders - Current: Current Medications Acetaminophen (Tylenol Extra Strength) 500 mg PO Q4H PRN PRN Reason: Pain Acetaminophen (Tylenol Extra Strength) 1,000 mg PO Q4H PRN PRN Reason: Pain Last Admin: 06/30/20 05:34 Dose: 1,000 mg Documented by: Benzocaine/Menthol (Dermoplast Pain Relief 20%-0.5% [place]) 78 gm TOP ASDIRECTED PRN PRN Reason: Perineal Comfort Measure Last Admin: 06/29/20 03:29 Dose: 1 canister Documented by: Bisacodyl (Dulcolax) 10 mg RECTAL ONETIME PRN PRN Reason: Constipation Butorphanol Tartrate (Stadol) 1 mg IVPUSH Q1H PRN PRN Reason: Pain Carboprost Tromethamine (Hemabate Ds) 250 mcg IM ASDIRECTED PRN PRN Reason: Post Hemorrhage Docusate Sodium (Colace) 100 mg PO BID PRN PRN Reason: Constipation Last Admin: 06/29/20 21:32 Dose: 100 mg Documented by: Emollient Ointment (Lansinoh Hpa) 0 gm TOP ASDIRECTED PRN PRN Reason: Sore Nipples Last Admin: 06/29/20 03:30 Dose: 7 gm Documented by: Oxytocin/Sodium Chloride (Oxytocin 30 Unit/500 Ml-Ns) 30 unit in 500 mls @ 999 mls/hr IV TITRATE SHANDRA Last Admin: 06/29/20 00:40 Dose: 999 mls/hr Documented by: Tranexamic Acid 1,000 mg/ (Sodium Chloride) 110 mls @ 660 mls/hr IV ONETIME PRN PRN Reason: Bleeding Oxytocin/Sodium Chloride (Oxytocin 30 Unit/500 Ml-Ns) 30 unit in 500 mls @ 2 mls/hr IV TITRATE SHANDRA; Protocol Lactated Ringer's (Ringers, Lactated) 1,000 mls @ 150 mls/hr IV ASDIRECTED SHANDRA Last Admin: 06/28/20 23:14 Dose: 150 mls/hr Documented by: Ibuprofen (Motrin) 400 mg PO Q4H PRN PRN Reason: Pain Ibuprofen (Motrin) 800 mg PO Q6H PRN PRN Reason: Pain Last Admin: 06/30/20 08:55 Dose: 800 mg Documented by: Lidocaine HCl (Xylocaine 1%) 50 ml INJECT ONETIME PRN PRN Reason: Laceration repair Methylergonovine Maleate (Methergine) 0.2 mg IM ASDIRECTED PRN PRN Reason: Post Hemorrhage Misoprostol (Cytotec) 200 mcg PO ONETIME PRN PRN Reason: Post Hemorrhage Misoprostol (Cytotec) 25 mcg VAG ONETIME PRN PRN Reason: Cervical Ripening Misoprostol (Cytotec) 25 mcg VAG Q4H PRN PRN Reason: Cervical Ripening Last Admin: 06/28/20 19:56 Dose: 25 mcg Documented by: Nalbuphine HCl (Nubain) 10 mg IVPUSH Q1H PRN PRN Reason: Pain (severe 7-10) Ondansetron HCl (Zofran) 4 mg IVPUSH Q6H PRN PRN Reason: Nausea/Vomiting Oxycodone HCl (Oxycodone) 5 mg PO Q2H PRN PRN Reason: Pain Last Admin: 06/29/20 11:23 Dose: 5 mg Documented by: Sodium Chloride (Saline Flush) 10 ml FLUSH ASDIRECTED PRN PRN Reason: Keep Vein Open Sodium Chloride (Saline Flush) 2.5 ml FLUSH ASDIRECTED PRN PRN Reason: Keep Vein Open Sodium Chloride (Normal Saline) 10 ml IV ASDIRECTED PRN PRN Reason: IV Use Sterile Water (Sterile Water For Irrigation) 1,000 ml IRR ASDIRECTED PRN PRN Reason: delivery Terbutaline Sulfate (Brethine) 0.25 mg SUBCUT ASDIRECTED PRN PRN Reason: Tacysystole Zofia Bruna (Tucks) 1 pad TOP ASDIRECTED PRN PRN Reason: comfort care Last Admin: 06/29/20 03:28 Dose: 1 tub Documented by: Discontinued Medications Fentanyl (Sublimaze) Confirm Administered Dose 100 mcg .ROUTE .STK-MED ONE Stop: 06/28/20 22:12 Last Admin: 06/29/20 07:51 Dose: Not Given Documented by: Ropivacaine (Naropin 0.2%) Confirm Administered Dose 100 mls @ as directed .ROUTE .STK-MED ONE Stop: 06/28/20 22:12 Last Admin: 06/29/20 07:51 Dose: Not Given Documented by: Measles/Mumps/Rubella Vaccine Live (M-M-R Ii Vaccine) 0.5 ml SUBCUT .ONCE ONE Stop: 06/29/20 01:02 - Infant Interaction Disposition, : [place] at Bedside Infant Interaction: Holding Feeding: Breastfed Infant; Nursed Well Support Person: - Recovery Exam Fundal Tone: Firm Fundal Level: 1 Fingerbreadths Below Umbilicus Fundal Placement: Midline Lochia Amount: Scant Lochia Color: Rubra/Red Perineum Description: Intact, Minimal Bruising/Swelling Episiotomy/Laceration: None Bladder Status: Voiding Urinary Elimination: Voided - Exam General: Alert, Oriented, Cooperative, No Acute Distress Neck: Supple, Trachea Midline Lungs: Normal Respiratory Effort GI/Abdominal Exam: Soft, Non-Tender, No Distention Extremities: Normal Inspection, Normal Range of Motion, Non-Tender, No Pedal Edema Skin: Warm, Dry, Intact Neurological: No New Focal Deficit Psy/Mental Status: Alert, Normal Affect, Normal Mood - Problem List Review Problem List Initiated/Reviewed/Updated: Yes - My Orders Last 24 Hours: My Active Orders 06/30/20 10:47 Ready for Discharge [RC] PER UNIT ROUTINE - Assessment Assessment:: 39yo PPD1 s/p , complicated by preeclampsia without severe features, GDMA1. Stable currently. - Plan Plan:: - BP normotensive, no s/s of severe preeclampsia, repeat labs wnl - fasting BS wnl - COVID 19+, denies any symptoms - well Stable for discharge home. Reviewed s/s of worsening preeclampsia. Will do BP check in 1 week. Advised her to continue quarantine for 2 weeks, and take precautions while caring for the baby due to COVID19+.
== END 2020-06-30 12:15 | disposition home or self-care (01) | DRG 560 ==
LOC: MW.OBCHECK 17:15 → MW.OB 17:29 → MW.OBCHECK 18:01 → OBSVTOIN 06-29 00:40 → MW.OB 06-29 06:00
PROVIDERS: ADMIT Obstetrics & Gynecology; ATTEND Obstetrics & Gynecology
PROC: 10E0XZZ Delivery of Products of Conception, External Approach (ICD-10-PCS; principal; 2020-06-29)
PROC: 10907ZC Drainage of Amniotic Fluid, Therapeutic from Products of Conception, Via Natural or Artificial Opening (ICD-10-PCS; 2020-06-29)
PROC: 3E0P7VZ Introduction of Hormone into Female Reproductive, Via Natural or Artificial Opening (ICD-10-PCS; 2020-06-29)
PROC: 3E0R3BZ Introduction of Anesthetic Agent into Spinal Canal, Percutaneous Approach (ICD-10-PCS; 2020-06-29)
PROC: 00HU33Z Insertion of Infusion Device into Spinal Canal, Percutaneous Approach (ICD-10-PCS; 2020-06-29)
PROC: 3E0234Z Introduction of Serum, Toxoid and Vaccine into Muscle, Percutaneous Approach (ICD-10-PCS; 2020-06-29)
DX: O98.52 Other viral diseases complicating childbirth (principal); O24.420 Gestational diabetes mellitus in childbirth, diet controlled; Z3A.38 38 weeks gestation of pregnancy; Z37.0 Single live birth; O14.04 Mild to moderate pre-eclampsia, complicating childbirth; O76 Abnormality in fetal heart rate and rhythm complicating labor and delivery; O69.81X0 Labor and delivery complicated by cord around neck, without compression, not applicable or unspecified; O99.52 Diseases of the respiratory system complicating childbirth; U07.1 COVID-19; Z23 Encounter for immunization
CPT/HCPCS: 01967; 36415; 59025; 59409; 80053; 84550; 85025; 85027; 86592; 86850; 86900; 86901; 90707; A9270-GY; J2590; J2795; J3010; J7120; U0002